=== PATIENT | female | born 1990 | race African-American/Black ===

== ENCOUNTER 2016-10-31 17:26 | Emergency (ER) | payer OTHER ==
[2016-10-31 17:32] VITALS: BMI 31.8
--- NOTE | 2016-10-31 17:38 | PDOC ---
Rapid Medical Evaluation Chief Complaint: Labor Assessment Medical Evaluation: Allergies Allergy/AdvReac Type Severity Reaction Status Date / Time No Known Drug Allergies Allergy Verified 10/31/16 17:33 Vital Signs Temp Pulse Resp BP Pulse Ox 98.3 F 80 20 122/66 100 10/31/16 17:28 10/31/16 17:28 10/31/16 17:28 10/31/16 17:28 10/31/16 17:28 10/31/16 17:38 26 yo F 27 week F with hx of missed s/p DNC presents to fast track with concerns regarding . Patient states she woke up this morning and vomited, and has not felt "the baby move very much today, and she's usually very active." Patient reports "maybe one cramp today" but denies any vaginal bleeding or unusual discharge. Patient stable to proceed to L&D for further evaluation.
[2016-10-31 18:13] VITALS: BP 124/78; PULSE 82; TEMP 98.1
== END 2016-10-31 18:25 | disposition home or self-care (01) ==
LOC: JER 17:26
DX: O36.8120 Decreased fetal movements, second trimester, not applicable or unspecified (principal); Z3A.27 27 weeks gestation of pregnancy
CPT/HCPCS: 99281-25

== ENCOUNTER 2017-02-01 00:10 | Inpatient (IN) | payer OTHER ==
[2017-02-01] MEDS ORDERED: DEXTROSE 5%-LACTATED RINGERS 1,000 ML IV ONE (00:38)
[2017-02-01] MEDS ORDERED: ELECTROLYTE-148 SOLN 500 ML IV ONE (00:40)
--- NOTE | 2017-02-01 00:43 | HP ---
Admitting History and Physical - Admission Chief Complaint: labor pain History of Present Illness: 26 y/o at 40 weeks with prior cs for , pt had prior cs for nrfht, gbs neg, hiv neg History Source: Patient Limitations to Obtaining History: No Limitations - Past Medical History [employer]: No: Alzheimer's, CVA, Dementia, Migraine, Multiple Sclerosis, Peripheral Neuropathy, Parkinson's, Seizure, Syncope, TIA, Vertigo, Other Cardiovascular: No: AFIB, Aneurysm, Aortic Insufficiency, Aortic Stenosis, CAD, CHF, Deep Vein Thrombosis, HTN, Hyperlipdemia, TN, Mitral Insufficiency, Mitral Stenosis, Murmur, Pulmonary Hypertension, Other Pulmonary: No: Asthma, Bronchitis, Cancer, COPD, O2 Dependent, Pneumonia, Previously Intubated, Pulmonary Embolus, Pulmonary Fibrosis, Sleep Apnea, Other Gastrointestinal: No: Ascites, Cancer, Constipation, Crohn's Disease, Diverticulitis, Diverticulosis, Esophageal Varices, Gastritis, GERD, GI Bleed, Hemorrhoids, Hiatal Hernia, Inflamatory Bowel Disease, Irritable Bowel Disease, Pancreatitis, Peptic Ulcer Disease, Ulcerative Colitis, Other Hepatobiliary: No: Cirrhosis, Cholelithiasis, Cholecystitis, Choledocholithiasis , Hepatitis A, Hepatitis B, Hepatitis C, Other Renal/: No: Renal Failure, Renal Inusuff, BPH, Cancer, Hematuria, Hemodialysis , Neurogenic Bladder, Renal Calculi, UTI, Other Reproductive: No: Ectopic , Endometriosis, Fibroids, PID, Polycystic Ovary Syndrome, Postmenopausal, Other Heme/Onc: No: Anemia, B12 Deficiency, Bleeding Disorder, Cancer, Current Chemotherapy, Current Radiation Therapy, Hemochromatosis, Hypercoaguable State, Myeloproliferative Synd, Sickle Cell Disease, Sickle Cell Trait, Thrombocytopenia, Other Infectious Disease: No: AIDS, C-Diff, Herpes Zoster, HIV, MRSA, STD's, Tuberculosis, VREF, Other Psych: No: Addictions, Anxiety, Bipolar, Depression, Panic, Psychosis, Schizophrenia, Other Rheumatology: No: Fibromyalgia, Gout, Lupus, Rheumatoid Arthritis, Sarcoidosis, Vasculitis, Other ENT: No: Allergic Rhinitis, Sinusitis, Other Endocrine: No: Talbot's Disease, [place]'s Disease, Diabetes Insipidus, Diabetes Mellitus, Hyperparathyroidism, Hyperthyroidism, Hypothyroidism, Osteopenia, SIADH, Other - Past Surgical History Past Surgical History: No: None, AAA Repair, AICD, Amputation, Appendectomy, Arthrosocopy, AV Fistula/Graft, Bariatric Surgery, Breast Biopsy, Bypass, CABG, Carotid Endarterectomy, Cataract Removal, Cholecystectomy, Colectomy, Colonoscopy, Colostomy, Craniotomy, , Cystectomy, Hernia Repair, Hysterectomy, Ileal Conduit, Ileosotomy, Joint Replacement, Kidney Transplant, Laminectomy, Liver Transplant, Mastectomy, Nephrectomy, Oopherectomy, Orchiectomy, Permanent Pacemaker, Prostatectomy, Splenectomy, Stent, Thoracotomy , TURP, Tonsillectomy, Tubal Ligation, Upper Endoscopy, Valve Replacement, Vasectomy, Vein Stripping/Ligation - Smoking History Smoking history: Never smoked - Alcohol/Substance Use Hx Alcohol Use: No Home Medications - Allergies Allergies/Adverse Reactions: Allergies Allergy/AdvReac Type Severity Reaction Status Date / Time No Known Drug Allergies Allergy Verified 02/01/17 00:34 - Home Medications Home Medications: Ambulatory Orders Ferrous Sulfate [Feosol] 325 mg PO TID 01/01/17 Vit Calc,Iron,Folic [ Vitamins] 1 each PO DAILY 01/01/17 Review of Systems - Review of Systems Constitutional: reports: No Symptoms Eyes: reports: No Symptoms HENT: reports: No Symptoms Neck: reports: No Symptoms Cardiovascular: reports: No Symptoms Respiratory: reports: No Symptoms Gastrointestinal: reports: No Symptoms Genitourinary: reports: No Symptoms Integumentary: reports: No Symptoms Neurological: reports: No Symptoms Endocrine: reports: No Symptoms Hematology/Lymphatic: reports: No Symptoms Psychiatric: reports: No Symptoms Physical Examination Constitutional: Yes: Well Nourished Eyes: Yes: WNL HENT: Yes: WNL Neck: Yes: WNL Cardiovascular: Yes: WNL Respiratory: Yes: WNL Gastrointestinal: Yes: WNL ...Rectal Exam: Yes: WNL Renal/: Yes: WNL Musculoskeletal: Yes: WNL Extremities: Yes: WNL Integumentary: Yes: WNL Neurological: Yes: WNL ...Motor Strength: WNL Psychiatric: Yes: WNL Assessment/Plan as above admit labs r/b of given epidural
--- NOTE | 2017-02-01 00:44 | PN ---
Progress Note (short form) - Note Progress Note: exam 6cm/arom/clear/fht 150
[2017-02-01] MEDS ORDERED: ELECTROLYTE-148 SOLN 1,000 ML IV SCH (00:45)
[2017-02-01 00:53] LABS: BASOPHIL 0.3 % (0-2.0); EOSINOPHIL 1.2 % (0-4.5); MCH 22.7 pg (25.7-33.7); MCHC 31.4 g/dl (32.0-36.0); MEAN CELL VOLUME 72.1 fl (80-96); MEAN PLT VOLUME 10.1 fl (7.5-11.1); NEUTROPHILS 70.1 % (42.8-82.8); PLATELET COUNT 131 K/MM3 (134-434); RDW 15.5 % (11.6-15.6)
[2017-02-01 01:14] VITALS: BMI 34.8
[2017-02-01 01:15] LABS: INR 0.96 (0.82-1.09); PROTHROMBIN TIME (PATIENT) 10.6 SEC (9.98-11.88)
[2017-02-01 01:41] LABS: ANION GAP 10 (8-16); CALCIUM 8.2 mg/dL (8.5-10.1); CO2 24 mmol/L (21-32); CREATININE 0.7 mg/dL (0.55-1.02); GLUCOSE,RANDOM 80 mg/dL (74-106)
[2017-02-01] MEDS ORDERED: FENTANYL/BUPIVACAINE/NS/PF - PCEA - 50 ML DISP.SYRIN EP SCH ×2 (02:15)
[2017-02-01] MEDS ORDERED: OXYTOCIN 15 UNITS/ LR 250 ML 250 ML IV ONE (03:11)
[2017-02-01] MEDS ORDERED: BISACODYL 10 MG SUPP.RECT RC PRN (05:47)
[2017-02-01] MEDS ORDERED: WITCH HAZEL 50% (TUCKS) 40 PAD/JAR PAD TP PRN (05:47)
[2017-02-01] MEDS ORDERED: BENZOCAINE 28 GM HEMORRHOIDAL OINTMENT TP PRN (05:47)
[2017-02-01] MEDS ORDERED: BENZOCAINE 20% 57 GM BOTTLE TP PRN (05:47)
[2017-02-01] MEDS ORDERED: METHYLERGONOVINE MALEATE 0.2 MG/1 ML AMP IM PRN (05:47)
--- NOTE | 2017-02-01 05:50 | PN ---
Delivery - Delivery Type of Anesthesia: Local Episiotomy/Laceration: None EBL (cc): 300 Delivery, Single - Feeding Plan Initial Plan: Elected not to breastfeed exclusively throughout hospitalization
[2017-02-01] MEDS ORDERED: OXYTOCIN 20 UNITS in 0.9% NS 1,000 ML IV SCH (06:00)
[2017-02-01] MEDS ORDERED: D5W-LR W/ 20 UNITS OXYTOCIN 1,000 ML IV ONE (06:31)
[2017-02-01] MEDS: IBUPROFEN 600 MG TABLET (FP) PO PRN ×3 (07:49→22:24)
[2017-02-01] MEDS: ACETAMINOPHEN 325 MG TABLET (FP) PO PRN ×2 (16:21→22:23)
[2017-02-01] MEDS ORDERED: DIPHTH,PERTUSS(ACELL),TET 0.5 ML DISP.SYRIN IM ONE (21:30)
[2017-02-02 08:26] LABS: BASOPHIL 0.4 % (0-2.0); EOSINOPHIL 1.2 % (0-4.5); MCH 23.2 pg (25.7-33.7); MCHC 32.1 g/dl (32.0-36.0); MEAN CELL VOLUME 72.4 fl (80-96); PLATELET COUNT 115 K/MM3 (134-434); RDW 16.1 % (11.6-15.6); WHITE BLOOD COUNT 10.3 K/mm3 (4.0-10.0)
[2017-02-02] MEDS: IBUPROFEN 600 MG TABLET (FP) PO PRN ×2 (08:33→17:46)
[2017-02-02] MEDS: ACETAMINOPHEN 325 MG TABLET (FP) PO PRN ×2 (08:34→17:46)
--- NOTE | 2017-02-02 10:13 | PN ---
Post Progress Note - Subjective Subjective: 26 yo Para 2, status post vaginal delivery, seen and evaluated. She's doing well. Post Day: 1 Type of Delivery: Vital Signs: Vital Signs Temperature 99.1 F 02/02/17 02:00 Pulse Rate 83 02/02/17 02:00 Respiratory Rate 18 02/02/17 02:00 Blood Pressure 121/57 02/02/17 02:00 O2 Sat by Pulse Oximetry (%) 100 02/01/17 05:20 Breast Exam: Yes: Soft Uterus: Yes: Fundus Firm Abdomen/GI: Yes: Abdomen soft, Tolerating PO Lochia: Yes: Rubra Lochia, amount: Moderate Extremities: Yes: Calves non-tender Perineum: Yes: Intact Activity: Ambulating - Labs Labs: CBC WBC 10.3 K/mm3 (4.0-10.0) H D 02/02/17 07:00 RBC 3.44 M/mm3 (3.60-5.2) L D 02/02/17 07:00 Hgb 8.0 GM/dL (10.7-15.3) L D 02/02/17 07:00 Hct 24.9 % (32.4-45.2) L D 02/02/17 07:00 MCV 72.4 fl (80-96) L 02/02/17 07:00 MCHC 32.1 g/dl (32.0-36.0) 02/02/17 07:00 RDW 16.1 % (11.6-15.6) H 02/02/17 07:00 Plt Count 115 K/MM3 (134-434) L 02/02/17 07:00 MPV 10.0 fl (7.5-11.1) 02/02/17 07:00 Neutrophils % 70.0 % (42.8-82.8) 02/02/17 07:00 Lymphocytes % 23.4 % (8-40) 02/02/17 07:00 Monocytes % 5.0 % (3.8-10.2) 02/02/17 07:00 Eosinophils % 1.2 % (0-4.5) 02/02/17 07:00 Basophils % 0.4 % (0-2.0) 02/02/17 07:00 Problem List - Problems (1) Status post normal vaginal delivery Code(s): [id number] - Assessment/Plan Status post normal vaginal delivery Stable Continue routine care
[2017-02-02] MEDS ORDERED: SENNOSIDES/DOCUSATE COMBO (SENNA PLUS) TABLET (UD) PO PRN (22:00)
[2017-02-03] MEDS: ACETAMINOPHEN 325 MG TABLET (FP) PO PRN ×3 (04:43→17:37)
[2017-02-03] MEDS: IBUPROFEN 600 MG TABLET (FP) PO PRN ×3 (04:43→17:38)
--- NOTE | 2017-02-03 08:04 | PN ---
Post Progress Note - Subjective Subjective: no complains Post Day: 2 Type of Delivery: Vital Signs: Vital Signs Temperature 98.1 F 02/02/17 22:00 Pulse Rate 78 02/02/17 22:00 Respiratory Rate 18 02/02/17 22:00 Blood Pressure 130/61 02/02/17 22:00 O2 Sat by Pulse Oximetry (%) 100 02/01/17 05:20 Breast Exam: Yes: Soft, Other (BF ). No: Engorged Uterus: Yes: Fundus Firm, Fundus below umbilicus, Non-tender Lochia: Yes: Rubra Lochia, amount: Small Extremities: Yes: Calves non-tender. No: Edema Perineum: Yes: Intact Activity: Ambulating - Labs Labs: CBC WBC 10.3 K/mm3 (4.0-10.0) H D 02/02/17 07:00 RBC 3.44 M/mm3 (3.60-5.2) L D 02/02/17 07:00 Hgb 8.0 GM/dL (10.7-15.3) L D 02/02/17 07:00 Hct 24.9 % (32.4-45.2) L D 02/02/17 07:00 MCV 72.4 fl (80-96) L 02/02/17 07:00 MCHC 32.1 g/dl (32.0-36.0) 02/02/17 07:00 RDW 16.1 % (11.6-15.6) H 02/02/17 07:00 Plt Count 115 K/MM3 (134-434) L 02/02/17 07:00 MPV 10.0 fl (7.5-11.1) 02/02/17 07:00 Neutrophils % 70.0 % (42.8-82.8) 02/02/17 07:00 Lymphocytes % 23.4 % (8-40) 02/02/17 07:00 Monocytes % 5.0 % (3.8-10.2) 02/02/17 07:00 Eosinophils % 1.2 % (0-4.5) 02/02/17 07:00 Basophils % 0.4 % (0-2.0) 02/02/17 07:00 Assessment/Plan anemia asymptomatic plan discharge today
[2017-02-03 10:40] VITALS: BP 118/51; PULSE 80; TEMP 98.8
== END 2017-02-03 19:02 | disposition home or self-care (01) | DRG 560 ==
LOC: JLDR 00:10 → J3W 09:17
PROVIDERS: ADMIT Obstetrics & Gynecology; ATTEND Obstetrics & Gynecology
PROC: 10E0XZZ Delivery of Products of Conception, External Approach (ICD-10-PCS; principal; 2017-02-01)
PROC: 3E0334Z Introduction of Serum, Toxoid and Vaccine into Peripheral Vein, Percutaneous Approach (ICD-10-PCS; 2017-02-01)
DX: O34.211 Maternal care for low transverse scar from previous cesarean delivery (principal); N85.8 Other specified noninflammatory disorders of uterus; Z3A.40 40 weeks gestation of pregnancy; O26.893 Other specified pregnancy related conditions, third trimester; Z67.91 Unspecified blood type, Rh negative; Z37.0 Single live birth
CPT/HCPCS: 36415; 59409; 80048; 85025; 85461; 85610; 85730; 86593; 86850; 86900; 86901; 86999; 90715

== ENCOUNTER 2023-03-19 19:20 | Emergency (ER) | payer OTHER ==
[2023-03-19 19:34] VITALS: PULSE 93; RESP 18; TEMP 98; BMI 37.8
[2023-03-19] MEDS ORDERED: ONDANSETRON 4 MG/2 ML VIAL IVPUSH ONE (19:38)
[2023-03-19] MEDS ORDERED: SODIUM CHLORIDE 0.9% 500 ML INFUS.BAG IV ONE (19:38)
[2023-03-19] MEDS ORDERED: ACETAMINOPHEN 1000 MG/100 ML BAG IVPB ONE (19:38)
[2023-03-19] MEDS ORDERED: ACETAMINOPHEN INJECTION 100 ML IVPB ONE (20:26)
[2023-03-19] MEDS ORDERED: ONDANSETRON 4 MG/2 ML VIAL ONE (20:26)
[2023-03-19 20:48] LABS: BASO % 0.8 % (0-2.0); EOS % 0.9 % (0-4.5); HEMATOCRIT 39.5 % (32.4-45.2); HEMOGLOBIN 12.5 GM/dL (10.7-15.3); LYMPH % 23.4 % (8-40); MCH 23.2 pg (25.7-33.7); MCHC 31.7 g/dl (32.0-36.0); MEAN CELL VOLUME 73.3 fl (80-96); MEAN PLT VOLUME 9.1 fl (7.5-11.1); MONO % 4.9 % (3.8-10.2); PLATELET COUNT 282 10^3/uL (134-434); RBC 5.39 M/mm3 (3.60-5.2); RDW 14.1 % (11.6-15.6); WHITE BLOOD COUNT 8.1 K/mm3 (4.0-10.0)
[2023-03-19 20:49] LABS: PH,URINE 5.5 (5.0-8.0); URINE APPEARANCE CLEAR; URINE BILIRUBIN NEGATIVE (NEGATIVE); URINE COLOR YELLOW; URINE GLUCOSE (UA) NEGATIVE (NEGATIVE); URINE KETONE TRACE (NEGATIVE); URINE LEUK ESTERASE NEGATIVE (NEGATIVE); URINE NITRITE NEGATIVE (NEGATIVE); URINE PROTEIN NEGATIVE (NEGATIVE)
[2023-03-19 21:05] LABS: POTASSIUM 4.2 mmol/L (3.5-5.1)
[2023-03-19 21:07] LABS: CALCIUM 8.6 mg/dL (8.5-10.1)
[2023-03-19 21:08] LABS: ALBUMIN 3.7 g/dl (3.4-5.0)
[2023-03-19 21:11] LABS: CREATININE 0.9 mg/dL (0.55-1.3)
[2023-03-19 21:12] LABS: BILIRUBIN,TOTAL 0.2 mg/dL (0.2-1); TOT PROT 7.9 g/dl (6.4-8.2)
[2023-03-20 01:10] VITALS: BP 134/96
== END 2023-03-20 01:10 | disposition home or self-care (01) ==
LOC: JER 19:20
PROC: 3E033NZ Introduction of Analgesics, Hypnotics, Sedatives into Peripheral Vein, Percutaneous Approach (ICD-10-PCS; principal; 2023-03-19)
PROC: 3E033GC Introduction of Other Therapeutic Substance into Peripheral Vein, Percutaneous Approach (ICD-10-PCS; 2023-03-19)
DX: R10.30 Lower abdominal pain, unspecified (principal); R10.2 Pelvic and perineal pain; R11.0 Nausea; N83.201 Unspecified ovarian cyst, right side
CPT/HCPCS: 36415; 76830-TC; 80053; 81003; 83690; 84703; 85025; 87086; 99284-25